=== PATIENT | male | born 1985 | race Caucasian/White ===

== ENCOUNTER 2017-03-26 10:34 | Day surgery (SDC) | payer OTHER ==
[~2017-03-26] VITALS: Ht 177.8 cm; Wt 117.9 kg
[~2017-03-26 10:34] MED LIST: ALBUTEROL SULF8.5 GM IH; ALLEGRA60 MG PO; AMARYL2 MG PO; BENTYL10 MG PO; BENTYL20 MG PO; BRILINTA60 MG PO; BUPROPION XL150 MG PO; LEVAQUIN500 MG PO; NAPROSYN500 MG PO; NASACORT10.8 ML BOTH NARES; OMEPRAZOLE20 MG PO; PANTOPRAZOLE SO40 MG PO; PREDNISONE20 MG PO; STRATTERA60 MG PO; TESSALON PERLE100 MG PO; ULTRAM50 MG PO; ZOFRAN ODT4 MG PO; ZOFRAN4 MG PO
[2017-03-26 11:03] LABS: POINT-OF-CARE METER ID UU14174212
== END 2017-03-26 12:40 | disposition home or self-care (01) ==
LOC: PAIN 10:34 → SDC 11:00 → PAIN 12:40
PROVIDERS: Anesthesiology Pain Medicine
DX: M47.816 Spondylosis without myelopathy or radiculopathy, lumbar region (principal); M54.5 Low back pain; G89.29 Other chronic pain; M79.1 Myalgia; E66.3 Overweight; Z68.41 Body mass index [BMI] 40.0-44.9, adult; E11.9 Type 2 diabetes mellitus without complications; Z79.891 Long term (current) use of opiate analgesic; F17.210 Nicotine dependence, cigarettes, uncomplicated; I25.2 Old myocardial infarction
CPT/HCPCS: 82948; J1030; J2250; J3010; S0020

== ENCOUNTER 2017-04-02 11:32 | Day surgery (SDC) | payer OTHER ==
[~2017-04-02] VITALS: Ht 177.8 cm; Wt 114.8 kg
[2017-04-02] MEDS ORDERED: CARVEDILOL6.25 MG PO (11:48)
[2017-04-02] MEDS ORDERED: LISINOPRIL5 MG PO (11:50)
[2017-04-02 12:14] LABS: POINT-OF-CARE METER ID UU14174212
== END 2017-04-02 12:47 | disposition home or self-care (01) ==
LOC: PAIN 11:32
PROVIDERS: Anesthesiology Pain Medicine
DX: M47.816 Spondylosis without myelopathy or radiculopathy, lumbar region (principal); M54.5 Low back pain; G89.29 Other chronic pain; M79.1 Myalgia; E11.9 Type 2 diabetes mellitus without complications; I25.2 Old myocardial infarction; F17.210 Nicotine dependence, cigarettes, uncomplicated; Z95.5 Presence of coronary angioplasty implant and graft
CPT/HCPCS: 82948; J1030; J2250; J3010; S0020

== ENCOUNTER 2017-07-23 11:30 | Day surgery (SDC) | payer OTHER ==
[~2017-07-23] VITALS: Ht 177.8 cm; Wt 113.4 kg
[~2017-07-23 11:30] MED LIST changes: +CARVEDILOL6.25 MG PO; +LISINOPRIL5 MG PO
== END 2017-07-23 13:33 | disposition home or self-care (01) ==
LOC: PAIN 11:30
PROVIDERS: Anesthesiology Pain Medicine
PROC: BR161ZZ Fluoroscopy of Lumbar Facet Joint(s) using Low Osmolar Contrast (ICD-10-PCS; principal; 2017-07-23)
PROC: 3E0T3TZ Introduction of Destructive Agent into Peripheral Nerves and Plexi, Percutaneous Approach (ICD-10-PCS; principal; 2017-07-23)
DX: M47.816 Spondylosis without myelopathy or radiculopathy, lumbar region (principal); M54.5 Low back pain; G89.29 Other chronic pain; I25.2 Old myocardial infarction; K21.9 Gastro-esophageal reflux disease without esophagitis; I10 Essential (primary) hypertension; R73.03 Prediabetes; Z79.891 Long term (current) use of opiate analgesic; F17.200 Nicotine dependence, unspecified, uncomplicated
CPT/HCPCS: 82948; J1030; J2250; J3010; S0020

== ENCOUNTER 2017-10-24 08:57 | Day surgery (SDC) | payer OTHER ==
[~2017-10-24] VITALS: Ht 180.3 cm; Wt 99.8 kg
[~2017-10-24 08:57] MED LIST changes: +LIPITOR80 MG PO; +LO-DOSE ASPIRIN81 M1 PO; +NITROSTAT0.4 MG SL
== END 2017-10-24 11:40 | disposition home or self-care (01) ==
LOC: PAIN 08:57
PROVIDERS: Anesthesiology Pain Medicine
DX: M47.816 Spondylosis without myelopathy or radiculopathy, lumbar region (principal); M54.5 Low back pain; G89.29 Other chronic pain; M79.1 Myalgia; E11.9 Type 2 diabetes mellitus without complications; I25.2 Old myocardial infarction; F17.200 Nicotine dependence, unspecified, uncomplicated; Z79.82 Long term (current) use of aspirin; Z79.84 Long term (current) use of oral hypoglycemic drugs
CPT/HCPCS: 82948; J1030; J1885; J2250; S0020